=== PATIENT | male | born 1970 | race Caucasian/White ===

== ENCOUNTER 2018-06-06 17:30 | Emergency (ER) | payer MEDICAID, OTHER ==
[~2018-06-06] VITALS: Ht 162.6 cm; Wt 73.0 kg
[2018-06-06 21:10] VITALS: BP 115/67
== END 2018-06-06 21:13 | disposition home or self-care (01) ==
LOC: ER 17:30
DX: K64.4 Residual hemorrhoidal skin tags (principal); I10 Essential (primary) hypertension
CPT/HCPCS: 99283

== ENCOUNTER 2018-09-03 02:19 | Inpatient (IN) | payer OTHER ==
[~2018-09-03] VITALS: Ht 162.6 cm; Wt 72.6 kg
[2018-09-03 03:57] LABS: BASOPHILS % 0.5 % (0.0-2.0); EOSINOPHILS % 0.9 % (0.0-5.0); HEMATOCRIT. 38.5 % (42.0-52.0); HEMOGLOBIN. 13.3 g/dL (14.0-18.0); LYMPHOCYTES % 25.1 % (20.0-50.0); MEAN CORPUSCULAR HEMOGLOBIN 32.7 pg (28.0-32.0); MEAN CORPUSCULAR VOLUME 94.6 fL (80.0-94.0); MEAN PLATELET VOLUME 8.3 fl (7.4-10.4); MONOCYTES % 8.2 % (2.0-8.0); NEUTROPHILS % 65.3 % (40.0-76.0); PLATELET 191 x1000/uL (130-400); RED BLOOD CELL COUNT 4.07 mill/uL (4.7-6.1); RED CELL DISTRIBUTION WIDTH 12.7 % (11.6-14.6)
[2018-09-03 03:59] LABS: CHLORIDE 109 mEq/L (98-107)
[2018-09-03 10:00] VITALS: BP 96/57
[2018-09-03 12:00] VITALS: BP 103/48
[2018-09-03] MEDS ORDERED: CLONIDINE 0.1MG TABLET PO PRN (12:00)
[2018-09-03] MEDS ORDERED: IPRATROPIUM/ALBUTEROL 0.5-3(2.5)MG/3ML NEB INH PRN (12:00)
[2018-09-03] MEDS ORDERED: ACETAMINOPHEN 325MG TABLET PO PRN (12:00)
[2018-09-03] MEDS ORDERED: ONDANSETRON HCL 4MG/2ML INJ IV PRN (12:00)
[2018-09-03] MEDS ORDERED: DOCUSATE SODIUM 100MG CAPSULE PO PRN (12:00)
[2018-09-03 16:00] VITALS: BP 110/56
[2018-09-03 16:49] LABS: *COCAINE SCREEN URINE NEGATIVE (NEGATIVE)
[2018-09-03 16:50] LABS: *AMPHETAMINES SCREEN URINE NEGATIVE (NEGATIVE); *BARBITURATES SCREEN URINE NEGATIVE (NEGATIVE); CANNABINOID URINE SCREEN NEGATIVE (NEGATIVE); METHADONE URINE SCREEN NEGATIVE (NEGATIVE); OPIATES URINE SCREEN NEGATIVE (NEGATIVE); PHENCYCLIDINE URINE SCREEN NEGATIVE (NEGATIVE)
[2018-09-03 16:51] LABS: *BENZODIAZEPINES SCREEN URINE NEGATIVE (NEGATIVE)
[2018-09-03 18:25] LABS: CREATINE KINASE 103 IU/L (39-308)
[2018-09-03 18:26] LABS: CREATINE KINASE MB FRACTION < 1.0 ng/mL (0.5-3.6)
[2018-09-03 20:00] VITALS: BP 95/51
[2018-09-04] VITALS: BP 97/51
[2018-09-04 04:00] VITALS: BP 99/53
[2018-09-04 07:06] LABS: BASOPHILS % 0.3 % (0.0-2.0); EOSINOPHILS % 1.3 % (0.0-5.0); HEMATOCRIT. 40.8 % (42.0-52.0); HEMOGLOBIN. 14.1 g/dL (14.0-18.0); LYMPHOCYTES % 32.1 % (20.0-50.0); MEAN CORPUSCULAR HEMOGLOBIN 32.9 pg (28.0-32.0); MEAN CORPUSCULAR VOLUME 95.2 fL (80.0-94.0); MEAN PLATELET VOLUME 8.8 fl (7.4-10.4); MONOCYTES % 8.5 % (2.0-8.0); NEUTROPHILS % 57.8 % (40.0-76.0); PLATELET 198 x1000/uL (130-400); RED BLOOD CELL COUNT 4.29 mill/uL (4.7-6.1); RED CELL DISTRIBUTION WIDTH 12.6 % (11.6-14.6)
[2018-09-04 07:11] LABS: CHLORIDE 110 mEq/L (98-107)
[2018-09-04 07:30] LABS: CREATINE KINASE 73 IU/L (39-308); LDL CHOLESTEROL 96 mg/dL (5-100)
[2018-09-04 07:31] LABS: HDL CHOLESTEROL 29 mg/dL (40-59)
[2018-09-04 07:32] LABS: CREATINE KINASE MB FRACTION < 1.0 ng/mL (0.5-3.6)
[2018-09-04 08:45] VITALS: BP 92/50
[2018-09-04 12:00] VITALS: BP 100/53
[2018-09-04 15:43] VITALS: BP 100/53
[2018-09-04 16:00] VITALS: BP 96/57
== END 2018-09-04 15:10 | disposition home or self-care (01) | DRG 207 ==
LOC: ER 02:19 → 7WST 05:49 → EDBEDREQTM 05:54 → EDBEDREQ 05:54 → ENRESERV 07:03
PROVIDERS: ADMIT Internal Medicine; ATTEND Internal Medicine
DX: R00.2 Palpitations (principal); I10 Essential (primary) hypertension; R00.1 Bradycardia, unspecified; R07.9 Chest pain, unspecified; R06.02 Shortness of breath; R20.0 Anesthesia of skin; R20.2 Paresthesia of skin; R42 Dizziness and giddiness; R55 Syncope and collapse; Z79.899 Other long term (current) drug therapy
CPT/HCPCS: 36415; 71045; 78452; 80048; 80061; 80305; 82550; 82553; 83735; 83880; 84443; 84484; 85379; 93005; 93017; 93306; 93970; A9500

== ENCOUNTER 2018-12-30 23:43 | Emergency (ER) | payer MEDICAID ==
[~2018-12-30] VITALS: Ht 162.6 cm; Wt 73.0 kg
[2018-12-30 23:57] VITALS: BP 114/76
== END 2018-12-31 01:39 | disposition left against medical advice (07) ==
LOC: ER 23:43
DX: R03.0 Elevated blood-pressure reading, without diagnosis of hypertension (principal); Z53.21 Procedure and treatment not carried out due to patient leaving prior to being seen by health care provider